=== PATIENT | male | born 1985 ===

== ENCOUNTER 2021-02-15 20:00 | Outpatient (CLI) | payer OTHER, SELFPAY | END 2021-02-15 20:01 | disposition home or self-care (01) | LOC: SLEEP 02-16 08:58 | PROVIDERS: Family Provider Family Medicine Adult Medicine; Visit Provider Emergency Medicine Emergency Medical Services | DX: R06.83 Snoring (principal); G47.33 Obstructive sleep apnea (adult) (pediatric); R53.83 Other fatigue | CPT/HCPCS: 95811 ==